=== PATIENT | female | born 1960 | race Caucasian/White ===

== ENCOUNTER 2025-05-15 16:28 | Inpatient (IN) ==
--- NOTE | 2025-05-15 16:42 | Emergency Department Note ---
Impression & Plan Pneumonia, Hypoxia, SOB (shortness of breath), Fever ED Provider Note NAME: PRACHI SHARP AGE: 64 SEX: F : 1960 ARRIVES VIA: Ambulance INFORMANT: Patient, EMS ED PROVIDER(S): Benedict Hernandez DO CHIEF COMPLAINT: Difficulty breathing HPI: The patient is a 64-year-old female who presented to the emergency department for an evaluation of fever and not feeling well. The patient has difficulty breathing and cough. The patient states the symptoms began over the last 48 hours. She has been using [id number] medication with only minimal relief. The patient was seen at the [facility] urgent care and was sent to the emergency department by ambulance for further evaluation. She denies having any chest pain. She denies having any abdominal pain. She denies having any vomiting. ROS: See above HPI for pertinent positives & negatives. A total of 10 systems reviewed and were otherwise negative. PAST MEDICAL HISTORY: See Below PAST SURGICAL HISTORY: See Below FAMILY HISTORY: See Below SOCIAL HISTORY: See Below HOME MEDICATIONS: See Below ALLERGIES: See Below VITALS: See Below PHYSICAL EXAMINATION: GENERAL: Patient is awake alert in no acute distress patient is resting comfortably and showing no signs of anxiety EYES: The conjunctivae are clear. The pupils are round and reactive. EARS, NOSE, MOUTH AND THROAT: The nose is without any evidence of any deformity. NECK: The neck is nontender and supple. RESPIRATORY: Diminished breath sounds are noted at the right upper lobe. There were no rales rhonchi or wheezing noted. CARDIOVASCULAR: Tachycardic and regular heart sounds were noted to auscultation. There is no definite murmur. GASTROINTESTINAL: The abdomen is soft. Abdomen is nontender. MUSCULOSKELETAL/EXTREMITIES: There is no evidence of gross deformity full range of motion is noted in the hips and shoulders. SKIN: There is no obvious evidence of any rash. Trace pedal edema was noted bilaterally. NEUROLOGIC: Patient is awake alert and oriented x3. MEDICAL DECISION MAKING: The patient is a 64-year-old female who presented to the emergency department for a fever. The patient's had cough and fever over the course of the last few days. She presented to the emergency department directly from the urgent care because of hypoxia. The patient was treated with supplemental oxygen. On reevaluation her hypoxia is improved but her tachycardia was still present. The patient was treated with Tylenol as well as IV antibiotics. She was also treated with IV fluids. I discussed the patient's laboratory and radiographic studies with her. She does appear to have an early infiltrate on chest x-ray. Given her vital signs I discussed her condition with the on-call [facility] hospitalist group. They have agreed to evaluate the patient in the emergency department for further management and disposition. Triage Nursing notes reviewed. Prior medical records reviewed Vital Signs: reviewed and remarkable for fever and tachycardia. Differential diagnosis: Viral syndrome, otitis, pharyngitis, pneumonia, influenza, meningitis, urinary tract infection, sepsis, bacteremia, as well as other pathologies. ER treatment provided: See below Diagnostics interpreted by me: ECG: EKG was obtained in the emergency department. My interpretation is sinus tachycardia at 115 bpm. There is no ectopy noted. Nonspecific ST abnormalities were appreciated. QTc was 423 ms. Cardiac Monitoring: An order was placed for continuous cardiac monitoring. The monitor shows a rate of 116 bpm with sinus tachycardia. Laboratory studies: As stated above and show below. Imaging studies: See below. Radiographic imaging was reviewed by myself Consultation(s): I discussed this case with Alma who is on-call for the [facility] hospitalist group. Past Med/Surg History Problem List (Updated 05/15/25 @ 18:00 by Benedict Hernandez DO) Fever (Acute) SOB (shortness of breath) (Acute) Hypoxia (Acute) Pneumonia (Acute) 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 adhesions (Acute 11/07/11) Medical History History of hypertension Depression Social History Smoking Status: Never smoker Preferred Language: Danish Feels Safe at Home: Yes Allergies Allergies Allergy/AdvReac Type Severity Reaction Status Date / Time Cephalosporins Allergy Intermediate DURICEF=HIV Verified 05/15/25 17:48 ES Home Meds Home Medications Medication Instructions Recorded Confirmed hydrochlorothiazide 12.5 mg capsule 12.5 mg PO QAM 07/02/23 05/15/25 Dheas Suppliment 1 dose PO DAILY 05/15/25 05/15/25 Lactobacillus acidophilus 10 10,000 mmu cells PO DAILY 05/15/25 05/15/25 billion cell capsule (Probiotic) cholecalciferol (vitamin D3) 50 50 mcg PO DAILY 05/15/25 05/15/25 mcg (2,000 unit) capsule (Vitamin D3) furosemide 20 mg tablet 20 mg PO QAM 05/15/25 05/15/25 levothyroxine 175 mcg tablet 175 mcg PO DAILYBB 05/15/25 05/15/25 Results & Data (ED) Vital Signs Vital Signs - 24 hr 05/15/25 16:30 05/15/25 16:59 05/15/25 17:33 Temperature 39 C H Temperature Source Oral Pulse Rate 124 H 115 H 116 H Respiratory Rate 25 H 23 Blood Pressure 159/97 H 143/82 H Blood Pressure Mean 117 92 Pulse Oximetry 94 90 Oxygen Delivery Method Nasal Cannula Nasal Cannula Oxygen Flow Rate 4 3 Sepsis Recent Fever Within 48 Hours No Sepsis New/Unexplained Change in Mental Status No Sepsis Action Taken by Nursing Physician Notified Home Medications Current Medication List: was personally reviewed by me Laboratory Data Attestation: I reviewed the patient's lab results. 05/15/25 16:55 05/15/25 16:55 Lab Results 05/15/25 05/15/25 Range/Units 16:42 16:55 WBC 4.08 L (4.8-10.8) K/ul RBC 4.90 (4.20-5.40) M/uL Hgb 14.3 (12.0-16.0) g/dL Hct 41.6 (37.0-47.0) % MCV 84.9 (80.0-100.0) fL MCH 29.2 (25.0-34.0) pg MCHC 34.4 (32.0-36.0) g/dL RDW Std Deviation 42.7 (36.4-46.3) fL RDW Coeff of Diana 13.8 (11.5-14.5) % Plt Count 117 L (130-400) K/uL MPV 10.2 (9.4-12.4) fL Immature Gran % (Auto) 0.5 % Neut % (Auto) 79.2 % Lymph % (Auto) 12.7 % [place] % (Auto) 6.9 % Eos % (Auto) 0.2 % Baso % (Auto) 0.5 % Neut # (Auto) 3.23 (1.40-6.50) K/uL Lymph # (Auto) 0.52 L (1.20-3.40) K/uL [place] # (Auto) 0.28 (0.11-0.59) K/uL Eos # (Auto) 0.01 (0.00-0.50) K/uL Baso # (Auto) 0.02 (0.00-0.20) K/uL Immature Gran # (Auto) 0.02 (0.01-0.20) K/uL PT 11.8 (9.0-12.0) Seconds INR 1.1 (0.9-1.1) APTT 32 H (21-31) Seconds PTT Ratio 1.2 VBG pH 7.47 H (7.36-7.41) VBG pCO2 39 (38-50) mmHg VBG pO2 27 mmHg VBG HCO3 28 mmol/L VBG O2 Saturation < 60.0 % VBG Base Excess 4.5 mEq/L Sodium 132 L (136-145) mmol/L Potassium 3.4 L (3.5-5.1) mmol/L Chloride 99 (98-107) mmol/L Carbon Dioxide 26 (21-32) mmol/L Anion Gap 7 (3-11) BUN 10 (6-23) mg/dl Creatinine 0.66 (0.6-1.2) mg/dl Est Cr Clr Drug Dosing 103.4 ml/min eGFR 97.29 BUN/Creatinine Ratio 15.2 (10-20) Glucose 150 H (70-99(Fasting)) mg/dl Lactate 1.6 (0.4-2.0) mmol/L Calcium 8.8 (8.6-10.3) mg/dl Magnesium 1.7 (1.7-2.4) mg/dl Total Bilirubin 0.8 (0.2-1.0) mg/dl Direct Bilirubin 0.1 (0-0.2) mg/dl AST 37 (13-39) U/L ALT 36 (7-52) U/L Alkaline Phosphatase 85 (34-104) U/L Troponin I High Sens 6.9 (0-14) pg/ml Total Protein 7.6 (6.0-8.3) gm/dl Albumin 3.8 (3.4-5.0) gm/dl Procalcitonin 0.80 H (0-0.5) ng/ml SARS-CoV-2 (PCR) NEGATIVE (Negative) Influenza Type A (PCR) Negative (Neg) Influenza Type B (PCR) Negative (Neg) RSV (RT-PCR) Negative (Neg) Administered Medications Discontinued Medications Acetaminophen (Acetaminophen 500 Mg Tab) 1,000 mg PO NOW STA Stop: 05/15/25 16:43 Last Admin: 05/15/25 16:54 Dose: 1,000 mg Documented By: JADE Piperacillin Sod/Tazobactam Sod (Zosyn) 4.5 gm in 100 mls @ 200 mls/hr IV NOW ONE; Protocol Stop: 05/15/25 17:26 Last Admin: 05/15/25 17:28 Dose: 200 mls/hr Documented By: CHENCHO Sodium Chloride (Nss) 1,000 mls @ 999 mls/hr IV .Q1H1M ONE Stop: 05/15/25 17:57 Last Admin: 05/15/25 17:28 Dose: 999 mls/hr Documented By: CHENCHO Imaging Data Attestation: I personally reviewed and interpreted this imaging study as follows: My Impression: 1 view chest x-ray was obtained in the emergency department. My interpretation is right sided infiltrate, no free air, final report below. Radiologist's Impression: Chest X-Ray 05/15/25 16:35 Chest radiograph, one view History: Dyspnea. Comparison: July 02, 2023. Findings: Increased confluent interstitial densities right infrahilar region. These are not present on prior exam. Pulmonary vasculature is within normal limits. Poorly defined left costophrenic angle. Body habitus limits portions of the evaluation. Cardiomediastinal silhouette is within normal limits. Diminished parenchymal markings upper lobes. Suspect emphysematous changes. Impression: Interval right base increased interstitial markings worrisome for inflammatory or infectious pneumonitis. Lateral view would be helpful. Follow-up after therapy would be helpful. Electronically signed by Antonio Herrera 05-15-2025 5:37 PM Discharge Plan Visit Data Chief Complaint: Flu Like Symptoms Stated Complaint: HYPOXIA, ILLNESS ED Provider: Benedict Hernandez Discharge Problem: Pneumonia, Hypoxia, SOB (shortness of breath), Fever Patient Disposition: Being Evaluated by Hospitalist Condition: Fair Forms Stand Alone Forms: [facility] PlayerTakesAll Prescriptions Prescriptions: No Action hydrochlorothiazide 12.5 mg capsule 12.5 mg PO QAM levothyroxine 175 mcg tablet 175 mcg PO DAILYBB furosemide 20 mg tablet 20 mg PO QAM cholecalciferol (vitamin D3) [Vitamin D3] 50 mcg (2,000 unit) Capsule 50 mcg PO DAILY Probiotic 10 billion cell Capsule 10,000 mmu cells PO DAILY Dheas Suppliment 1 dose PO DAILY Referrals Referrals: Teena Santana MD [Primary Care Provider] -
[2025-05-15] MEDS: ACETAMINOPHEN 500 MG TAB PO STA (16:54)
[2025-05-15 17:22] LABS: Base Excess VBG 4.5 mEq/L; HCO3 VBG 28 mmol/L; Oxygen Saturation VBG < 60.0 %; PCO2 VBG 39 mmHg (38-50); PO2 VBG 27 mmHg; pH VBG 7.47 (7.36-7.41)
[2025-05-15 17:24] LABS: Hematocrit (blood only) 41.6 % (37.0-47.0); Hemoglobin 14.3 g/dL (12.0-16.0); Mean Corpuscular Hemoglobin 29.2 pg (25.0-34.0); Mean Corpuscular Volume 84.9 fL (80.0-100.0); Platelet Count 117 K/uL (130-400); RDW Standard Deviation 42.7 fL (36.4-46.3); Red Blood Count 4.90 M/uL (4.20-5.40); White Blood Count 4.08 K/ul (4.8-10.8)
[2025-05-15] MEDS: SODIUM CHLORIDE 0.9% 1,000 ML IV ONE (17:28)
[2025-05-15] MEDS: PIPERACILLIN/TAZOBACTAM 4.5 GM/100 ML BAG IV ONE (17:28)
--- NOTE | 2025-05-15 17:37 | XRay Report ---
Chest radiograph, one view History: Dyspnea. Comparison: July 02, 2023. Findings: Increased confluent interstitial densities right infrahilar region. These are not present on prior exam. Pulmonary vasculature is within normal limits. Poorly defined left costophrenic angle. Body habitus limits portions of the evaluation. Cardiomediastinal silhouette is within normal limits. Diminished parenchymal markings upper lobes. Suspect emphysematous changes. Impression: Interval right base increased interstitial markings worrisome for inflammatory or infectious pneumonitis. Lateral view would be helpful. Follow-up after therapy would be helpful. Electronically signed by Antonio Herrera 05-15-2025 5:37 PM
[2025-05-15 17:40] LABS: Influenza A virus by PCR Negative (Neg); Influenza B virus by PCR Negative (Neg); SARS CoV2 RNA(COVID-19) Ceph NEGATIVE (Negative)
[2025-05-15 17:42] LABS: Alanine Aminotransferase 36.0 U/L (7-52); Albumin Level 3.8 gm/dl (3.4-5.0); Alkaline Phosphatase 85.0 U/L (34-104); Anion Gap 7.0 (3-11); Bilirubin,Total 0.8 mg/dl (0.2-1.0); Blood Urea Nitrogen 10.0 mg/dl (6-23); Calcium 8.8 mg/dl (8.6-10.3); Carbon Dioxide 26.0 mmol/L (21-32); Chloride 99.0 mmol/L (98-107); Creatinine Clr Calc Pharmacy 103.4 ml/min; Glucose 150.0 mg/dl (70-99(Fasting)); Immature Granulocytes # (auto) 0.02 K/uL (0.01-0.20); Immature Granulocytes % (auto) 0.5 %; Magnesium 1.7 mg/dl (1.7-2.4); Potassium 3.4 mmol/L (3.5-5.1); Sodium 132.0 mmol/L (136-145); Total Protein 7.6 gm/dl (6.0-8.3)
[2025-05-15 17:55] LABS: INR 1.1 (0.9-1.1); Partial Thromboplastin Time 32 Seconds (21-31); Prothrombin Time 11.8 Seconds (9.0-12.0)
--- NOTE | 2025-05-15 17:57 | History & Physical Report ---
Date of Service May 15, 2025 Assessment & Plan (1) History of hypertension: (2) Obesity, morbid (more than 100 lbs over ideal weight or BMI > 40): (3) Hypothyroidism: (4) Hypoxia: Plan Pneumonitis Viral Illness Possible Pneumonia - Obs on med surg with tele - Sputum culture, duonebs Q6H prn for shortness of breath - Wean O2 prn, does not require any at baseline - Influenza/covid/rsv swab neg - Procalcitonin 0.80 - WBC at time of admission = 4K, febrile with Tmax 39 C, tachycardia with HR 120s, hypoxic at urgent care clinic to 92 % currently on 2 L, hypoxia present with walking in the ER. - BCx x 2, follow - Tmax = 39 - CXR reviewed as above showing Interval right base increased interstitial markings worrisome for inflammatory or infectious pneumonitis. , pending cxr 2 view, follow up - Consider CT chest pending no improvement - Continue antibiotic therapy with zosyn IV , had one dose in the ER - Chest pain is more concerning for respiratory virus/pna as troponin is negative, EKG without acute findings but is tachycardic during the same time she is spiking a fever at 39. Monitor. Unlikley ACS. - Cont NSS x 1 bag at 80/ml. Given 1 L in ER already. Hypokalemia - Replace with 40 meq PO Tick bite - 2 wks ago, check peripheral smear, tick borne panel pending - noted thrombocytopenia of 117 on admission HTN - antihypertensives include: HCTZ 12.5 mg daily, but she is fairly noncompliant and doesn't routinely take lasix 20 mg daily, amlodipine 5 mg daily. Prediabetes - Check A1c with a.m. labs - Glucose slightly elevated at 150 on BMP upon admission - Does have metformin 1000 mg BID on outpt med review however she reports NOT taking is medication. Obesity, BMI 44.5 - diet and exercise encouraged Hypothyroidism - Cont levothyroxine 137 mcg daily, check TSH DVT ppx: teds, scds, No chemical PPx in the setting of thrombocytopenia Lines: PIV x 1 FEN/GI: heart healthy CODE: Full code Dispo: From home, likely to remain in the hospital x 1 day. If requires 2 night stay then will need to be full admit. I spent a total of 75 minutes with greater than 50% of that time face to face with the patient, personally reviewing all current laboratories, imaging studies, past medication reconciliation, outpatient chart review, and discussion with specialists to collaborate care for the patient excluding time spent in the performance of separately billed services or time spent by another provider/QHP. Please see attending documentation for corrections and/or additions. History of Present Illness Chief Complaint: Shortness of breath, viral illness Primary Care Provider: Teena Santana MD this is a 64-year-old female with PMHx of HTN, hypothyroidism, prediabetes, obesity who initially presented to outpatient urgent care clinic with Abi for complaints of 2 days of viral symptoms including congestion, sinus pressure, fever, generalized malaise. She is reporting minor cough without sputum production and some mild left sided chest pain, no pressure/heaviness or radiation. She does have nausea but has not vomited today. Denies any changes in bowel or bladder habits. She has several grandchildren but does not recall if they were sick recently. Reports being bit by the tick 2 weeks ago, has chronic joint pain in lower extremities. Her is present with her at bedside and supports the history. She was found to have temp of 39.1 at urgent care, respirations were 22, pulse 124, SpO2 92% on room air and due to such she was instructed to come to the ER. She was given a DuoNeb treatment at urgent care and placed on 2 L with O2 sats improved to 95%. Here in the emergency room pulse is 116, temp 39 and has been given 1 L NSS, 1000 mg Tylenol, started on IV Zosyn. CXR reviewed showing possible pneumonitis on 1 view. Will obtain a AP/lateral view for further evaluation of possible RLL involvement. Allergies Allergy/AdvReac Type Severity Reaction Status Date / Time Cephalosporins Allergy Intermediate DURICEF=HIV Verified 05/15/25 17:48 ES Home Medications Medication Instructions Recorded Confirmed Type hydrochlorothiazide 12.5 mg capsule 12.5 mg PO QAM 07/02/23 05/15/25 History Dheas Suppliment 1 dose PO DAILY 05/15/25 05/15/25 History Lactobacillus acidophilus 10 10,000 mmu cells PO DAILY 05/15/25 05/15/25 History billion cell capsule (Probiotic) cholecalciferol (vitamin D3) 50 50 mcg PO DAILY 05/15/25 05/15/25 History mcg (2,000 unit) capsule (Vitamin D3) furosemide 20 mg tablet 20 mg PO QAM 05/15/25 05/15/25 History levothyroxine 175 mcg tablet 175 mcg PO DAILYBB 05/15/25 05/15/25 History Past Med/Surg History Problem List (Updated 05/15/25 @ 18:03 by Ladonna Mcfadden PA-C) Obesity, morbid (more than 100 lbs over ideal weight or BMI > 40) History of hypertension Hypothyroidism Fever (Acute) SOB (shortness of breath) (Acute) Hypoxia (Acute) Pneumonia (Acute) 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 adhesions (Acute 11/07/11) Medical History (Updated 05/15/25 @ 18:03 by Ladonna Mcfadden PA-C) Depression Surgical History (Updated 05/15/25 @ 18:02 by Ladonna Mcfadden PA-C) Hx of tonsillectomy Hx of total hysterectomy Hx of colonoscopy Family History Father Cancer Hypertension Thyroid disorder Sister Thyroid disorder Grandmother (Paternal) Cancer Grandfather (Paternal) Cancer Social History Smoking Status: Never smoker Preferred Language: Tamaz[place] Feels Safe at Home: Yes Review of Systems Review of Systems: Constitutional: + fever, sweats and chills, + headache, + malaise, + fatigue Eyes: No diplopia, no worsening or blurred vision ENT: normal hearing, no trouble swallowing, + minor sore throat, + sinus congestion Respiratory: + occasional cough, no sputum, no dyspnea at rest , + dyspnea on exertion Cardiovascular: As per HPI with chest pain, no tightness or palpitations Abdomen: No pain, +nausea, no vomiting, diarrhea or constipation Musculoskeletal: No calf pain, trace lower extremity swelling, + chronic lower extremity joint pain Neurologic: No weakness, numbness/tingling, or balance problems Psychiatric: No anxiety or depression Skin: No rash or itch Physical Exam Physical Exam: General: awake, alert, no apparent distress, + obese white female, BMI 44.5 Head: Normocephalic, atraumatic ENT: PERRL, EOMI, no pharyngeal exudate or erythema, mucous membranes slightly dry Chest: Body habitus makes breath sounds difficult to auscultate, diminished throughout, chest pain is not reproducible on exam, on 2 L via NC, no wheeze or rales Cardiac: + sinus tachycardia, no murmur, no JVD, normal peripheral pulses, good capillary refill Abdominal: NABS x 4 quadrants, soft, nondistended, nontender to palpation, no rebound or guarding Extremities: Normal inspection, + trace peripheral edema , no erythema, calfs nontender to palpation Psych: Normal mood and affect Neuro: AAO x 3, strength intact bilaterally and rated 5/5, no motor deficits, speech is clear, no peripheral sensory deficits Results & Data Results & Data Vital Signs (Past 12 Hours) Vital Signs Temp Pulse Resp BP Pulse Ox O2 Del Method O2 Flow Rate 05/15/25 17:33 116 H 23 143/82 H 90 Nasal Cannula 3 05/15/25 16:59 115 H 05/15/25 16:30 39 C H 124 H 25 H 159/97 H 94 Nasal Cannula 4 Laboratory Results 05/15/25 16:55 Aerobic Blood Culture - Pending Blood Anaerobic Blood Culture - Pending 05/15/25 16:55 Aerobic Blood Culture - Pending Blood Anaerobic Blood Culture - Pending 05/15/25 05/15/25 16:55 16:42 WBC 4.08 L RBC 4.90 Hgb 14.3 Hct 41.6 MCV 84.9 MCH 29.2 MCHC 34.4 RDW Std Deviation 42.7 RDW Coeff of Diana 13.8 Plt Count 117 L MPV 10.2 Immature Gran % (Auto) 0.5 Neut % (Auto) 79.2 Lymph % (Auto) 12.7 [place] % (Auto) 6.9 Eos % (Auto) 0.2 Baso % (Auto) 0.5 Neut # (Auto) 3.23 Lymph # (Auto) 0.52 L [place] # (Auto) 0.28 Eos # (Auto) 0.01 Baso # (Auto) 0.02 Immature Gran # (Auto) 0.02 PT 11.8 INR 1.1 APTT 32 H PTT Ratio 1.2 VBG pH 7.47 H VBG pCO2 39 VBG pO2 27 VBG HCO3 28 VBG O2 Saturation < 60.0 VBG Base Excess 4.5 Sodium 132 L Potassium 3.4 L Chloride 99 Carbon Dioxide 26 Anion Gap 7 BUN 10 Creatinine 0.66 Est Cr Clr Drug Dosing 103.4 eGFR 97.29 BUN/Creatinine Ratio 15.2 Glucose 150 H Lactate 1.6 Calcium 8.8 Magnesium 1.7 Total Bilirubin 0.8 Direct Bilirubin 0.1 AST 37 ALT 36 Alkaline Phosphatase 85 Troponin I High Sens 6.9 Total Protein 7.6 Albumin 3.8 Procalcitonin 0.80 H SARS-CoV-2 (PCR) NEGATIVE Influenza Type A (PCR) Negative Influenza Type B (PCR) Negative RSV (RT-PCR) Negative Diagnostic Findings Chest X-Ray 05/15/25 16:35 Chest radiograph, one view History: Dyspnea. Comparison: July 02, 2023. Findings: Increased confluent interstitial densities right infrahilar region. These are not present on prior exam. Pulmonary vasculature is within normal limits. Poorly defined left costophrenic angle. Body habitus limits portions of the evaluation. Cardiomediastinal silhouette is within normal limits. Diminished parenchymal markings upper lobes. Suspect emphysematous changes. Impression: Interval right base increased interstitial markings worrisome for inflammatory or infectious pneumonitis. Lateral view would be helpful. Follow-up after therapy would be helpful. Electronically signed by Antonio Herrera 05-15-2025 5:37 PM ECG Additional Comments: Sinus tachycardia Code Status & VTE Plan Code Status Full code - discussed with the patient at bedside Supervising Physician Co-Signing Physician Notes 64-year-old lady with PMH of HTN, hypothyroidism, prediabetes, obesity presents to the ED with complaint of 2 days of fever. Patient reports highest temperature noted at home 102.9F. Patient reports feeling miserable, headache, nausea, sore throat yesterday. patient denies cough, shortness of breath, belly pain, pain and burning while passing urine. Patient reports moving bowels okay. Patient denies smoking. Patient reports tick bite about 2 to 3 weeks ago to h er right thigh. Chest x-ray with right base pneumonitis, given no cough or shortness of breath will get CT chest to rule out pneumonia. Patient reports did bite about 2 weeks ago, will get Tickborne serology. Leukopenia noted on lab exam. Hypokalemia, give 40 mEq of potassium. Hyponatremia, mild, expect to improve with improving acute illness/appetite. Pro-Melchor is elevated, lactate WNL. Flu screen negative. Patient received Zosyn in the ED, will continue with same. Patient has allergy to cephalosporin. It will cover possible tickborne illness as well as pneumonia if there is any. Follow admitting blood culture. gentle ivf nss at 80 ml/hr for 1-2 bags. On exam: GENERAL: Alert and oriented x3. NAD, on 3L NC O2. Obese class III HEENT: No pallor, no icterus. Pupils equal, round and reactive to light. Oral mucosa moist NECK: No JVD, no neck masses. HEART: S1 and S2 heard. Regular rate and rhythm. HR in 110s. No murmur, no gallop. RESPIRATORY SYSTEM: Normal AP diameter. No accessory muscle use. No wheezing, bb rales. ABDOMEN: Soft, bowel sounds present, nontender, no distention. CENTRAL NERVOUS SYSTEM: No facial droop. Speech is clear. Obeys simple commands. Moves extremities. EXTREMITIES: trace ble edema, no erythema seen. right thigh tick bite, erythema <1cm diameter w/ central scab. Total time spent independently: 28 minutes. I have seen and examined the patient and have discussed the case with the provider above. I agree with the assessment and plan as stated.
[2025-05-15] MEDS ORDERED: ALBUT/IPRATROP 3MG/0.5MG NEB 3 ML VIAL NEB PRN (18:31)
[2025-05-15] MEDS ORDERED: POTASSIUM CHLORIDE CRTAB 20 MEQ TABCR PO STA (18:31)
[2025-05-15 19:28] LABS: Thyroid Stimulating Hormone 4.473 uIu/ml (0.300-4.500)
--- NOTE | 2025-05-15 19:35 | XRay Report ---
Exam: Chest PA/lateral. Reason for exam: Evaluate right lower lobe. Previous studies: 05/15/2025 portable exam. FINDINGS: Cardiac size is normal. Lungs show no active infiltrate, collapse or edema. No right lower lobe consolidation confirmed at this time. IMPRESSION: Stable appearance. No acute disease seen at this time. No active consolidation seen in the right lower lobe. Electronically signed by Manuel Mcdaniels 05-15-2025 7:35 PM
[2025-05-15] MEDS: ONDANSETRON INJ 2 MG/ML 2 ML VIAL IV STA (20:47)
[2025-05-15] MEDS ORDERED: BENZONATATE 100 MG CAPSULE PO SCH (21:00)
--- NOTE | 2025-05-15 21:40 | Communication Note ---
Date of Service: May 15, 2025 Patient febrile despite Zosyn Rx administration at the ER. Repeat chest x-ray negative for consolidation. AP AP Sepsis secondary to CAP Add doxycycline to Zosyn for atypical coverage.
[2025-05-15] MEDS: POTASSIUM CHLORIDE CRTAB 20 MEQ TABCR PO SCH (22:18)
[2025-05-15] MEDS: SODIUM CHLORIDE 0.9% 1,000 ML IV SCH (22:18)
[2025-05-15] MEDS: DOXYCYCLINE HYCLATE 100 MG in DEXTROSE 5% MINI-B 100 ML IV STA (22:21)
[2025-05-15 22:50] LABS: Appearance Urine Cloudy (Clear); Bacteria Urine Automated 3+ (None Seen); Cast Urine Automated 0-2 /lpf (0-2); Glucose Urine UA Negative (Negative); WBC Urine Automated 0-5 /hpf (0-5)
[2025-05-15] MEDS: ACETAMINOPHEN 325 MG TAB PO PRN (23:29)
[2025-05-16] MEDS: PIPERACILLIN/TAZOBACTAM 4.5 GM/100 ML BAG IV SCH (00:46)
[2025-05-16] MEDS: ONDANSETRON INJ 2 MG/ML 2 ML VIAL IV PRN (00:54)
[2025-05-16] MEDS: KETOROLAC TROMETHAMINE 15 MG/ML VIAL IV ONE (01:20)
[2025-05-16] MEDS: LEVOTHYROXINE SODIUM 175 MCG TABLET PO SCH (06:16)
[2025-05-16 07:05] LABS: Hematocrit (blood only) 37.2 % (37.0-47.0); Hemoglobin 12.6 g/dL (12.0-16.0); Mean Corpuscular Hemoglobin 28.9 pg (25.0-34.0); Mean Corpuscular Volume 85.3 fL (80.0-100.0); Platelet Count 94 K/uL (130-400); RDW Standard Deviation 43.9 fL (36.4-46.3); Red Blood Count 4.36 M/uL (4.20-5.40); White Blood Count 3.11 K/ul (4.8-10.8)
[2025-05-16 07:19] LABS: Anion Gap 6.0 (3-11); Blood Urea Nitrogen 12.0 mg/dl (6-23); Calcium 8.1 mg/dl (8.6-10.3); Carbon Dioxide 26.0 mmol/L (21-32); Chloride 104.0 mmol/L (98-107); Cholesterol 135.0 mg/dl (0-200); Creatinine Clr Calc Pharmacy 96.8 ml/min; Glucose 129.0 mg/dl (70-99(Fasting)); HDL Cholesterol 20.0 mg/dl; Potassium 3.5 mmol/L (3.5-5.1); Sodium 136.0 mmol/L (136-145); Triglycerides 149.0 mg/dl (0-150)
[2025-05-16 08:33] LABS: Hemoglobin A1C 6.0 % (4.5-5.6)
[2025-05-16] MEDS: DOXYCYCLINE HYCLATE 100 MG CAP PO SCH (09:25)
[2025-05-16] MEDS: ACETAMINOPHEN 500 MG TAB PO PRN (09:25)
[2025-05-16] MEDS: ADVANCED PROBIOTIC 625 MG CAPSULE PO SCH (09:25)
--- NOTE | 2025-05-16 11:46 | Electrocardiogram Report ---
Test Reason : Blood Pressure : */* mmHG Vent. Rate : 115 BPM Atrial Rate : 115 BPM P-R Int : 192 ms QRS Dur : 92 ms QT Int : 306 ms P-R-T Axes : 41 0 29 degrees QTcB Int : 423 ms Sinus tachycardia with Premature atrial complexes Poor R wave progression, consider anterior PA vs. lead placement vs. LVH Abnormal ECG When compared with ECG of 02-Jul-2023 21:42, Premature atrial complexes are now Present Confirmed by Benedict Garcia ([id number]) on 05/16/2025 11:46:13 AM Referred By: Confirmed By: Benedict Garcia
--- NOTE | 2025-05-16 12:17 | Hospitalist Progress Note ---
Date of Service May 16, 2025 Assessment & Plan (1) History of hypertension: (2) Obesity, morbid (more than 100 lbs over ideal weight or BMI > 40): (3) Hypothyroidism: (4) Hypoxia: Plan 64-year-old female with history of hypertension, hypothyroidism, prediabetes, presenting with fever, headaches, generalized body aches for 2 to 3 days. Febrile illness Possible tickborne infection around had low-grade fever overnight WBC count slightly trending down Platelet levels also trending down Lyme screen negative Anaplasmosis, babesiosis peripheral smear: Negative, PCR pending Continue with empiric doxycycline twice daily Monitor closely Possible upper respiratory tract infection with Sinusitis Denies cough, shortness of breath, on room air CT chest: No pneumonia Continue IV Zosyn HTN - antihypertensives include: HCTZ 12.5 mg daily, but she is fairly noncompliant and doesn't routinely take lasix 20 mg daily, amlodipine 5 mg daily. - blood pressure on the lower side Continue IV fluids Prediabetes - a1c: 6.0 Obesity, BMI 44.5 - diet and exercise encouraged Hypothyroidism - Cont levothyroxine 137 mcg daily TSH normal DVT ppx: teds, scds, No chemical PPx in the setting of thrombocytopenia Lines: PIV x 1 FEN/GI: heart healthy CODE: Full code Dispo: Admitted to [facility] with telemetry monitoring Lives with family at home Admission and Anticipated Discharge Date Admission Date: May 15, 2025 Subjective seen resting in bed, comfortable, not in distress Patient's later at the bedside visiting States she feels just a little bit better than yesterday Still having some frontal headache, nasal drainage Denies sore throat, shortness of breath, cough Also reports generalized body aches, some nausea, poor appetite Mild nonspecific left-sided chest discomfort, very minimal No other symptoms Review of Systems Review of Systems: all noted and negative except for above Physical Exam Physical Exam: General- oriented x 3, not in distress, speaks in sentences with no effort or accessory muscle use Eyes- anicteric Neck- no JVD Face-Minimal right maxillary tenderness Lungs- clear breath sounds bilaterally, no rales/wheezes Heart- normal rate, regular rhythm; no murmurs Abdomen- normal bowel sounds, nondistended, soft, nontender Extremities- no pretibial edema, no calf tenderness right thigh: Small tick bite, dry, no surrounding erythema, edema or tenderness Neuro- alert, oriented x 3; no gross focal neurologic deficits Skin- warm & dry Results & Data Results & Data Vital Signs (Past 12 Hours) Vital Signs Temp Pulse Resp BP Pulse Ox O2 Del Method O2 Flow Rate 05/16/25 08:06 36.5 C 69 16 101/66 99 Nasal Cannula 05/16/25 04:10 36.7 C 72 20 108/64 95 Nasal Cannula 2 05/16/25 01:09 36.9 C 100 H 22 135/84 93 Nasal Cannula 2 all noted and reviewed including below
--- NOTE | 2025-05-16 12:22 | CT Scan Report ---
CT SCAN OF THE CHEST WITHOUT IV CONTRAST CLINICAL HISTORY: Cough. Dyspnea COMPARISON STUDY: Chest x-ray dated 05/15/2025. TECHNIQUE: CT scan of the thorax was performed from the thoracic inlet to the upper abdomen. Images are reviewed in the axial, sagittal, and coronal planes. IV contrast was not administered for this ex amination as per the referring clinician. A dose lowering technique was utilized adhering to the delfin cecilia of JOHNNIE. CT DOSE: 819.01 mGy.cm FINDINGS: Thyroid: Atrophic. Thoracic aorta: The thoracic aorta is normal in caliber and demonstrates standard 3-vessel arch anato my. Heart: The heart is normal in size and without pericardial effusion. Lungs and pleural spaces: There is no airspace consolidation typical for pneumonia or pleural effusio n. Foci of parenchymal scarring are seen throughout both lungs, greatest at the lung bases. Mild secr etions are noted in the right mainstem bronchus. The trachea is clear. Mediastinum: There is no mediastinal lymphadenopathy. Bibiana: Not well assessed without IV contrast. Axillae: There is no axillary lymphadenopathy. Upper abdomen: The liver is enlarged and steatotic. There is a tiny hiatal hernia. The partially visu alized spleen appears enlarged. Skeletal structures: The skeletal structures are osteopenic. No lytic or blastic bony lesions are see n. IMPRESSION: 1. There is no airspace consolidation or pleural effusion. 2. Hepatic steatosis. 3. Additional findings as above. ACT 112: Negative or not required by law. Electronically signed by: Ian Gallegos M.D. 05/16/2025 12:20 PM
[2025-05-17] MEDS: MoRPHine SULFATE 4 MG/ML 1 ML CARP\\VIAL IV STA (09:11)
[2025-05-17 09:50] LABS: Hematocrit (blood only) 34.8 % (37.0-47.0); Hemoglobin 12.0 g/dL (12.0-16.0); Mean Corpuscular Hemoglobin 29.3 pg (25.0-34.0); Mean Corpuscular Volume 84.9 fL (80.0-100.0); Platelet Count 106 K/uL (130-400); RDW Standard Deviation 43.9 fL (36.4-46.3); Red Blood Count 4.10 M/uL (4.20-5.40); White Blood Count 4.73 K/ul (4.8-10.8)
[2025-05-17] MEDS: SODIUM CHLORIDE 0.9% 1,000 ML IV SCH (10:01)
[2025-05-17 10:03] LABS: Alanine Aminotransferase 64.0 U/L (7-52); Albumin Globulin Ratio 1.0 (0.9-2); Albumin Level 3.0 gm/dl (3.4-5.0); Alkaline Phosphatase 76.0 U/L (34-104); Anion Gap 5.0 (3-11); Bilirubin,Total 0.7 mg/dl (0.2-1.0); Blood Urea Nitrogen 11.0 mg/dl (6-23); Calcium 8.3 mg/dl (8.6-10.3); Carbon Dioxide 26.0 mmol/L (21-32); Chloride 103.0 mmol/L (98-107); Creatinine Clr Calc Pharmacy 111.1 ml/min; Globulin 3.1 gm/dl (2.5-4.0); Glucose 188.0 mg/dl (70-99(Fasting)); Potassium 3.4 mmol/L (3.5-5.1); Sodium 134.0 mmol/L (136-145); Total Protein 6.1 gm/dl (6.0-8.3)
[2025-05-17 10:17] LABS: Immature Granulocytes # (auto) 0.03 K/uL (0.01-0.20); Immature Granulocytes % (auto) 0.6 %; Polychromasia 1+
--- NOTE | 2025-05-17 11:22 | CT Scan Report ---
CT SCAN OF THE PARANASAL SINUSES CLINICAL HISTORY: Headaches. COMPARISON STUDY: CT of the brain dated 07/02/2023. TECHNIQUE: High-resolution CT scan of the paranasal sinuses is performed. Images are reviewed in the axial, sagittal, and coronal planes. IV contrast was not administered for this examination. A dose lowering technique was utilized adhering to the principles of ALARA. CT DOSE: 664.13 mGy.cm FINDINGS: Maxillary antra: A subcentimeter retention cyst is noted on the right. Clear on the left. Anterior ethmoid sinuses: Clear. Posterior ethmoid sinuses: Clear. Sphenoid sinuses: Clear. Frontal sinuses: There is trace mucosal thickening and a 6 mm osteoma in the right. Clear left. Ostiomeatal complexes: Patent bilaterally. Frontoethmoidal and sphenoethmoidal recesses: Patent bilaterally. Carotid arteries: The carotid arteries are protuberant but covered and are without septal attachments . Ethmoid roofs: There is slightly asymmetric elevation of the right ethmoid roof as compared to the le ft. Nasal turbinates: There is basil bullosa of the right middle nasal turbinate. Nasal septum: There is leftward deviation of the bony nasal septum. Optic nerves: Covered. Orbits: The bony orbits are intact. Orbital contents are normal in appearance. Calvarium: The imaged calvarium is normal in appearance. The partially imaged teeth show numerous den andrea caries. Arthritic change is seen in the temporomandibular joints. Mastoid air cells: Well pneumatized. Brain parenchyma: Normal as imaged. IMPRESSION: 1. No significant paranasal sinus disease is identified. 2. There are several dental caries. Nonemergent follow-up with dentistry is advised. ACT 112: Negative or not required by law. Electronically signed by: Ian Gallegos M.D. 05/17/2025 11:21 AM
--- NOTE | 2025-05-17 11:50 | Magnetic Resonance Report ---
MRI OF THE BRAIN WITHOUT IV CONTRAST CLINICAL HISTORY: Headache and dizziness. COMPARISON STUDY: CT of the brain dated 07/02/2023. TECHNIQUE: MRI of the brain was performed utilizing various T1 and T2-weighted sequences in the axial , sagittal, and coronal planes. IV contrast was not administered for this examination. FINDINGS: Brain parenchyma: The brain parenchyma is normal in appearance. There is no hemorrhage or mass effect . There is no restricted diffusion to suggest acute ischemia. Barry-white matter differentiation is pr eserved. No extra-axial fluid collection is seen. The cerebellar tonsils are normal in configuration. Ventricles, sulci, and cisterns: Normal in configuration. Pituitary and sella: Unremarkable. Intracranial vasculature: Normal flow voids are maintained at the skull base. Orbits: The bony orbits are grossly intact. Orbital contents are normal in appearance. Sinuses and mastoids: Clear. Calvarium: Unremarkable. Cervical cord: Partially visualized cervical spinal cord is normal in morphology and signal intensity . IMPRESSION: No acute intracranial abnormality. ACT 112: Negative or not required by law. Electronically signed by: Ian Gallegos M.D. 05/17/2025 11:49 AM
[2025-05-17] MEDS: POTASSIUM CHLORIDE 10 MEQ TABCR PO STA (11:51)
[2025-05-17] MEDS: KETOROLAC 30 MG/ML VIAL IV PRN (14:32)
[2025-05-17] MEDS: AMPICILLIN/SULBACTAM SOD 3,000 MG/100 ML BAG IV SCH (14:35)
[2025-05-17] MEDS ORDERED: PROMETHAZINE 12.5 MG/50.5 ML BAG IV PRN (14:59)
[2025-05-17] MEDS: PANTOprazole 40 MG/10 ML SYR IV SCH (15:37)
--- NOTE | 2025-05-17 17:03 | Hospitalist Progress Note ---
Date of Service May 17, 2025 Assessment & Plan (1) History of hypertension: (2) Obesity, morbid (more than 100 lbs over ideal weight or BMI > 40): (3) Hypothyroidism: (4) Hypoxia: Plan 64-year-old female with history of hypertension, hypothyroidism, prediabetes, presenting with fever, headaches, generalized body aches for 2 to 3 days. Febrile illness Possible tickborne infection around had low-grade fever overnight WBC count slightly trending down Platelet levels also trending down Lyme screen negative Anaplasmosis, babesiosis peripheral smear: Negative, PCR pending Continue with empiric doxycycline twice daily Monitor closely 05/17 remains afebrile no leukocytosis plt level improving blood cultures: negative so far CT sinus ordered: No effusion noted Brain MRI ordered: No acute process Anaplasmosis, babesiosis pending Continue IV Unasyn for now until blood cultures are negative x 48 hours Continue p.o. doxycycline Possible upper respiratory tract infection with Sinusitis Denies cough, shortness of breath, on room air CT chest: No pneumonia Continue IV Unasyn HTN - antihypertensives include: HCTZ 12.5 mg daily, but she is fairly noncompliant and doesn't routinely take lasix 20 mg daily, amlodipine 5 mg daily. - Blood pressure on the lower side Continue IV fluids Prediabetes - a1c: 6.0 Obesity, BMI 44.5 - diet and exercise encouraged Hypothyroidism - Cont levothyroxine 137 mcg daily TSH normal DVT ppx: teds, scds Heparin TID Lines: PIV x 1 FEN/GI: heart healthy CODE: Full code Dispo: Admitted to [facility] with telemetry monitoring Lives with family at home Admission and Anticipated Discharge Date Admission Date: May 16, 2025 Subjective Seen resting in bed, not in distress States she feels about the same I did yesterday Having significant headache, but no neck pain No shortness of breath, cough, chest pain, fever/chills appetite still poor having some nausea, no abdominal pain Review of Systems Review of Systems: all noted and negative except for above Physical Exam Physical Exam: General- oriented x 3, not in distress, speaks in sentences with no effort or accessory muscle use Eyes- anicteric Neck- no JVD no neck rigidity Lungs- clear breath sounds bilaterally, no rales/wheezes Heart- normal rate, regular rhythm; no murmurs Abdomen- normal bowel sounds, nondistended, soft, nontender Extremities- no pretibial edema, no calf tenderness Neuro- alert, oriented x 3; no gross focal neurologic deficits Skin- warm & dry Results & Data Results & Data Vital Signs (Past 12 Hours) Vital Signs Temp Pulse Pulse Resp BP Pulse Ox O2 Del Method 05/17/25 15:27 36.4 C 67 20 100/67 90 Room Air 05/17/25 14:25 72 05/17/25 11:43 36.6 C 65 112/73 91 Room Air 05/17/25 09:16 Nasal Cannula 05/17/25 07:50 36.9 C 71 18 100/64 97 Nasal Cannula 05/17/25 07:15 73 O2 Flow Rate 05/17/25 15:27 05/17/25 14:25 05/17/25 11:43 05/17/25 09:16 2 05/17/25 07:50 2 05/17/25 07:15 all noted and reviewed including below
[2025-05-18 05:53] LABS: A calco-baum cmplx NotReported Not Detected (NotDetected); Bact fragilis Not Reported Not Detected (NotDetected); Blood Culture Id Panel See PCR Comment (NotDetected); C auris Not Reported Not Detected (NotDetected); Calbicans Not Reported Not Detected (NotDetected); Candida glabrata Not Reported Not Detected (NotDetected); Candida krusei Not Reported Not Detected (NotDetected); Cneoformans/gatti Not Reported Not Detected (NotDetected); Cparapsilosis Not Reported Not Detected (NotDetected); Ctropicalis Not Reported Not Detected (NotDetected); E cloacae compx Not Reported Not Detected (NotDetected); Efaecalis Not Reported Not Detected (NotDetected); Efaecium Not Reported Not Detected (NotDetected); Enterobacterales Not Reported Not Detected (NotDetected); Escherichia coli Not Reported Not Detected (NotDetected); H influenzae Not Reported Not Detected (NotDetected); K aerogenes Not Reported Not Detected (NotDetected); Koxytoca Not Reported Not Detected (NotDetected); Kpneumoniae grp Not Reported Not Detected (NotDetected); Lmonocyt Not Reported Not Detected (NotDetected); N meningitidis Not Reported Not Detected (NotDetected); P aeruginosa Not Reported Not Detected (NotDetected); Proteus spp Not Reported Not Detected (NotDetected); Salmonella spp Not Reported Not Detected (NotDetected); Staph lugdunensis Not Reported Not Detected (NotDetected); Staph spp. Not Reported DETECTED (NotDetected); Staphaureus Not Reported Not Detected (NotDetected); Staphepi Not Reported Not Detected (NotDetected); Stenmaltophilia Not Reported Not Detected (NotDetected); Strep agal(GrpB) Not Reported Not Detected (NotDetected); Strep pneum Not Reported Not Detected (NotDetected); Strep pyog (GrpA) Not Reported Not Detected (NotDetected); Strep spp Not Reported Not Detected (NotDetected)
[2025-05-18 06:03] LABS: Staphylococcus spp. DETECTED (NotDetected)
[2025-05-18] MEDS: CHOLECALCIFEROL 25 MCG (1000 UNITS) TAB PO SCH (07:44)
[2025-05-18 07:51] LABS: Alanine Aminotransferase 56.0 U/L (7-52); Albumin Globulin Ratio 1.1 (0.9-2); Albumin Level 3.4 gm/dl (3.4-5.0); Alkaline Phosphatase 77.0 U/L (34-104); Anion Gap 5.0 (3-11); Bilirubin,Total 0.6 mg/dl (0.2-1.0); Blood Urea Nitrogen 9.0 mg/dl (6-23); Calcium 8.6 mg/dl (8.6-10.3); Carbon Dioxide 28.0 mmol/L (21-32); Chloride 104.0 mmol/L (98-107); Creatinine Clr Calc Pharmacy 118.3 ml/min; Globulin 3.1 gm/dl (2.5-4.0); Glucose 119.0 mg/dl (70-99(Fasting)); Potassium 3.9 mmol/L (3.5-5.1); Sodium 137.0 mmol/L (136-145); Total Protein 6.5 gm/dl (6.0-8.3)
[2025-05-18 08:05] LABS: Hematocrit (blood only) 35.0 % (37.0-47.0); Hemoglobin 12.0 g/dL (12.0-16.0); Mean Corpuscular Hemoglobin 29.7 pg (25.0-34.0); Mean Corpuscular Volume 86.6 fL (80.0-100.0); Platelet Count 130 K/uL (130-400); RDW Standard Deviation 45.8 fL (36.4-46.3); Red Blood Count 4.04 M/uL (4.20-5.40); White Blood Count 7.52 K/ul (4.8-10.8)
[2025-05-18 08:09] LABS: Immature Granulocytes # (auto) 0.05 K/uL (0.01-0.20); Immature Granulocytes % (auto) 0.7 %; RBC Morphology Unremarkable
--- NOTE | 2025-05-18 15:33 | Hospitalist Progress Note ---
Date of Service May 18, 2025 Assessment & Plan (1) History of hypertension: (2) Obesity, morbid (more than 100 lbs over ideal weight or BMI > 40): (3) Hypothyroidism: (4) Hypoxia: Plan 64-year-old female with history of hypertension, hypothyroidism, prediabetes, presenting with fever, headaches, generalized body aches for 2 to 3 days. Febrile illness Possible Anaplasmosis, Babesiosis Sinusitis r/o Bacteremia vs Contaminant, Stap presented with fever, headache, myalgias, poor appetite 2 weeks after a tick bite also with neutropenia, thrombocytopenia fever resolved, WBC and Plt back to baseline clinically somewhat feeling better still has headache CT sinus: no effusion CT chest: no pneumonia Brain MRI: no acute process Blood culture: (+) gram positive cocci, MSSA per serology repeat blood cultures: ordered continue IV Unasyn Lyme screen negative Anaplasmosis, babesiosis peripheral smear: Negative, PCR pending Continue with empiric doxycycline twice daily HTN - antihypertensives include: HCTZ 12.5 mg daily, but she is fairly noncompliant and doesn't routinely take lasix 20 mg daily, amlodipine 5 mg daily. - BP was on the lower side improved with IV fluids Prediabetes - a1c: 6.0 Obesity, BMI 44.5 - diet and exercise encouraged Hypothyroidism - Cont levothyroxine 137 mcg daily TSH normal DVT ppx: teds, scds Heparin TID CODE: Full code Dispo: Admitted to [facility] with telemetry monitoring Lives with family at home Admission and Anticipated Discharge Date Admission Date: May 16, 2025 Subjective seen resting in bed, sitting up comfortable still having headache- mostly parietal region no changes with vision, photophobia, neck pain no chest pain, cough, shortness of breath appetite still poor Review of Systems 2 Review of Systems: all noted and negative except for above Physical Exam Physical Exam: General- oriented x 3, not in distress, speaks in sentences with no effort or accessory muscle use Eyes- anicteric Neck- no JVD Lungs- clear breath sounds BL Heart- normal rate, regular rhythm; no murmurs Abdomen- normal bowel sounds, nondistended, soft, nontender Extremities- no pretibial edema, no calf tenderness Neuro- alert, oriented x 3; no gross focal neurologic deficits Skin- warm & dry Results & Data Results & Data Vital Signs (Past 12 Hours) Vital Signs Temp Pulse Pulse Resp BP Pulse Ox O2 Del Method 05/18/25 08:56 94 Room Air 05/18/25 08:53 36.5 C 87 14 127/66 86 L Room Air 05/18/25 07:31 84 all noted and reviewed including below
[2025-05-18 19:38] VITALS: RESP 18
[2025-05-19 03:21] VITALS: O2SAT 91
[2025-05-19 07:36] VITALS: TEMP 97.9
[2025-05-19 07:38] LABS: Hematocrit (blood only) 34.1 % (37.0-47.0); Hemoglobin 11.6 g/dL (12.0-16.0); Mean Corpuscular Hemoglobin 29.1 pg (25.0-34.0); Mean Corpuscular Volume 85.7 fL (80.0-100.0); Platelet Count 133 K/uL (130-400); RDW Standard Deviation 44.6 fL (36.4-46.3); Red Blood Count 3.98 M/uL (4.20-5.40); White Blood Count 7.17 K/ul (4.8-10.8)
[2025-05-19 07:54] LABS: Alanine Aminotransferase 61.0 U/L (7-52); Albumin Globulin Ratio 1.1 (0.9-2); Albumin Level 3.2 gm/dl (3.4-5.0); Alkaline Phosphatase 76.0 U/L (34-104); Anion Gap 6.0 (3-11); Bilirubin,Total 0.5 mg/dl (0.2-1.0); Blood Urea Nitrogen 11.0 mg/dl (6-23); Calcium 8.6 mg/dl (8.6-10.3); Carbon Dioxide 27.0 mmol/L (21-32); Chloride 105.0 mmol/L (98-107); Creatinine Clr Calc Pharmacy 147.8 ml/min; Globulin 2.9 gm/dl (2.5-4.0); Glucose 125.0 mg/dl (70-99(Fasting)); Potassium 3.6 mmol/L (3.5-5.1); Sodium 138.0 mmol/L (136-145); Total Protein 6.1 gm/dl (6.0-8.3)
[2025-05-19 08:32] LABS: ALC (manual) 1.72 K/uL (1.2-3.4); ANC (manual) 4.73 K/uL (1.4-6.5); Large Granular Lymph # (manua 1.15 K/uL; Large Granular Lymph % (manual) 16 %; RBC Morphology Unremarkable
[2025-05-19 12:13] VITALS: BP 127/66
[2025-05-19 14:21] VITALS: PULSE 69
--- NOTE | 2025-05-19 15:44 | Discharge Summary ---
Discharge Summary Date of Service May 19, 2025 Principal Dx & Hospital Course #1 = Principal Diagnosis (1) History of hypertension: (2) Obesity, morbid (more than 100 lbs over ideal weight or BMI > 40): (3) Hypothyroidism: (4) Hypoxia: Plan 64-year-old female with history of hypertension, hypothyroidism, prediabetes, presenting with fever, headaches, generalized body aches for 2 to 3 days. Febrile illness Possible Anaplasmosis, Babesiosis Sinusitis r/o Bacteremia vs Contaminant, Stap presented with fever, headache, myalgias, poor appetite 2 weeks after a tick bite also with neutropenia, thrombocytopenia fever resolved, WBC and Plt back to baseline clinically somewhat feeling better still has headache CT sinus: no effusion CT chest: no pneumonia Brain MRI: no acute process Blood culture: (+) gram positive cocci, MSSA per serology repeat blood cultures: ordered continue IV Unasyn Lyme screen negative Anaplasmosis, babesiosis peripheral smear: Negative, PCR pending Continue with empiric doxycycline twice daily HTN - antihypertensives include: HCTZ 12.5 mg daily, but she is fairly noncompliant and doesn't routinely take lasix 20 mg daily, amlodipine 5 mg daily. - BP was on the lower side improved with IV fluids Prediabetes - a1c: 6.0 Obesity, BMI 44.5 - diet and exercise encouraged Hypothyroidism - Cont levothyroxine 137 mcg daily TSH normal DVT ppx: teds, scds Heparin TID CODE: Full code Dispo: Admitted to [facility] with telemetry monitoring Lives with family at home Notes For Next Care Provider 64-year-old female with history of hypertension, hypothyroidism, prediabetes, presenting with fever, headaches, generalized body aches for 2 to 3 days. On medicine, started on doxycycline for suspected tick borne infection. Initial labs were negative but improved with empiric doxycycline. Fevers decreased. Given medications for nausea and headaches. On 05/19/2025 patient felt close to baseline and ready to be discharged. To do: [ ] finish course of doxycycline -Incidental Findings: dental carries, hepatic steatosis Medication Changes From Visit -doxycycline Admission HPI Per Admitting Provider this is a 64-year-old female with PMHx of HTN, hypothyroidism, prediabetes, obesity who [facility] of 2 days of viral symptoms including congestion, sinus pressure, fever, generalized malaise. She is reporting minor cough without sputum production and some mild left sided chest pain, no pressure/heaviness or radiation. She does have nausea but has not vomited today. Denies any changes in bowel or bladder habits. She has several grandchildren but does not recall if they were sick recently. Reports being bit by the tick 2 weeks ago, has chronic joint pain in lower extremities. Her is present with her at bedside and supports the history. She was found to have temp of 39.1 at urgent care, respirations were 22, pulse 124, SpO2 92% on room air and due to such she was instructed to come to the ER. She was given a DuoNeb treatment at urgent care and placed on 2 L with O2 sats i mproved to 95%. Here in the emergency room pulse is 116, temp 39 and has been given 1 L NSS, 1000 mg Tylenol, started on IV Zosyn. CXR reviewed showing possible pneumonitis on 1 view. Will obtain a AP/lateral view for further evaluation of possible RLL involvement. Discharge Exam Gen: A&O 3 NAD HEENT: NCAT, EOMI, not icteric. External ears normal. No rhinorrhea. Moist mucous membranes. Neck: Supple, full range of motion, no observable masses, No meningeal sign. Lungs: No Respiratory distress. CV: RRR, no edema. Abdomen: Soft, nondistended, No rebound tenderness. MSK: No joint swelling, no redness. Skin: No rashes, petechiae, lesions. Normal color per patient. Neuro: Normal Gait, Grossly intact. Psych: Appropriate for situation. Updated Medication List Medication Instructions Recorded Confirmed Type hydrochlorothiazide 12.5 mg capsule 12.5 mg PO QA 07/02/23 05/15/25 History Dheas Suppliment 1 dose PO DAILY 05/15/25 05/15/25 History Lactobacillus acidophilus 10 10,000 mmu cells PO DAILY 05/15/25 05/15/25 History billion cell capsule (Probiotic) cholecalciferol (vitamin D3) 50 50 mcg PO DAILY 05/15/25 05/15/25 History mcg (2,000 unit) capsule (Vitamin D3) furosemide 20 mg tablet 20 mg PO QAM 05/15/25 05/15/25 History levothyroxine 175 mcg tablet 175 mcg PO DAILYBB 05/15/25 05/15/25 History acetaminophen 325 mg tablet 650 mg (2 x 325 mg) PO Q6H PRN 05/19/25 Rx (Aminofen) headache #30 tabs doxycycline hyclate 100 mg capsule 100 mg PO BID 11 days #22 caps 05/19/25 Rx ondansetron 4 mg disintegrating 4 mg PO Q8H PRN nausea and 05/19/25 Rx tablet vomiting 5 days #14 tabs Hospital Stay Data Consultations 05/15/25 17:50 ED Decision to Admit Stat Diagnostic Imagining Performed 05/16/25 08:01 CT chest diagnostic wo con Routine 05/17/25 09:19 CT sinus wo con Routine MRI Brain [MR brain wo con] Urgent Pending Results Patient Have Any Pending Studies at Discharge: No Discharge Instructions Given to Patient (Per Discharging Provider) Diagnosis: possible tick borne illness, headache Incidental Findings: dental carries, hepatic steatosis Follow Ups: PCP, dentist 1. Please follow up with PCP, dentist. 2. Finish course of doxycycline as prescribed. 3. Stay hydrated! Total Time Total Time Spent Total Time Spent (In Minutes): I spent a total of 35 minutes in direct patient care, including [id number] time with the patient and/or family, reviewing medical records, ordering and reviewing diagnostic tests, and coordinating care with other healthcare providers. This time includes: history taking, physical examination, medical decision making, counseling, ECG interpretation, imaging interpretation, lab interpretation, orders, and education, excluding time spent in the performance of separately billed services.
== END 2025-05-19 14:33 | disposition home or self-care (01) | DRG 864 ==
LOC: ED 16:28 → EDINP 16:28 → SUATTDRO 18:01 → 2N 18:32 → SUATTDRO 05-16 12:09